=== PATIENT | male | born 1980 | race Two or more races ===

== ENCOUNTER 2018-05-30 19:08 | Emergency (ER) | payer MEDICAID ==
[~2018-05-30] VITALS: Ht 177.8 cm; Wt 81.6 kg
[2018-05-30 19:30] VITALS: BP 150/94
[2018-05-30] MEDS ORDERED: LIDOCAINE 1%-EPI 1:100,000 20 ML VIAL ONE (20:03)
[2018-05-30] MEDS ORDERED: ACETAMINOPHEN ES 500 MG TABLET ONE (20:03)
[2018-05-30] MEDS: LIDOCAINE 1%-EPI 1:100,000 20 ML VIAL TP ONE (20:05)
[2018-05-30] MEDS: ACETAMINOPHEN ES 500 MG TABLET PO ONE (20:05)
== END 2018-05-30 20:59 | disposition home or self-care (01) ==
LOC: ER 19:14
DX: S01.01XA Laceration without foreign body of scalp, initial encounter (principal); S40.021A Contusion of right upper arm, initial encounter; Y04.8XXA Assault by other bodily force, initial encounter; Y93.89 Activity, other specified; Y92.89 Other specified places as the place of occurrence of the external cause; Y99.0 Civilian activity done for income or pay
CPT/HCPCS: A4606; A6402; J3490; Z7610